=== PATIENT | male | born 1965 | race Caucasian/White ===

== ENCOUNTER 2020-12-21 12:11 | Emergency (ER) | payer BC ==
--- NOTE | 2020-12-21 12:48 | EDM.PDOC ---
ED HPI GENERAL MEDICAL PROBLEM - General Chief Complaint: Chest Pain Stated Complaint: CHEST INJURY SENT BY [facility] Time Seen by Provider: 12/21/20 12:25 Source of Information: Reports: Patient, RN Notes Reviewed History Limitations: Reports: No Limitations - History of Present Illness INITIAL COMMENTS - FREE TEXT/NARRATIVE: Patient is a 55-year-old male presenting to the emergency department at [facility] with complaints of right-sided and midsternal chest pain. Patient reports that on Friday, he fell and hit the right side of his chest on a water bottle. States he did not have much pain for 24 hours, however since Friday he has been having progressively worsening pain. Reports it hurts to take a deep breath, cough, or sneeze. Reports he does have shortness of breath, however this is chronic for him given history of emphysema. He does not feel that it is any worse than it is at baseline. Denies any dizziness, nausea, vomiting, or diaphoresis. Right Middle Chest Pain Score (Numeric/FACES): 7 - Related Data Allergies Allergy/AdvReac Type Severity Reaction Status Date / Time No Known Allergies Allergy Verified 12/21/20 12:22 Home Meds: Home Meds Naproxen [Naprosyn] 500 mg PO Q12HR 5 Days #10 tab 12/21/20 [Rx] Past Medical History Cardiovascular History: Reports: Hypertension Respiratory History: Reports: Other (See Below) Other Respiratory History: Emphysema Endocrine/Metabolic History: Reports: Obesity/BMI 30+ - Past Surgical History GI Surgical History: Reports: Hernia Repair/Other Social & Family History - Tobacco Use Tobacco Use Status *Q: Never Tobacco User - Caffeine Use Caffeine Use: Reports: Coffee - Recreational Drug Use Recreational Drug Use: No ED ROS GENERAL - Review of Systems Review Of Systems: Comprehensive ROS is negative, except as noted in HPI. ED EXAM, GENERAL - Physical Exam Exam: See Below Exam Limited By: No Limitations General Appearance: Alert, WD/WN, No Apparent Distress Respiratory/Chest: No Respiratory Distress, Lungs Clear, Normal Breath Sounds, No Accessory Muscle Use, Other (Large bruise to the right anterior chest wall. Tenderness to palpation throughout the right pectoralis muscle.) Cardiovascular: Normal Peripheral Pulses, Regular Rate, Rhythm, No Edema, No Gallop, No JVD, No Murmur, No Rub Neurological: Alert, Oriented, CN II-XII Intact, Normal Cognition, Normal Gait, Normal Reflexes, No Motor/Sensory Deficits Psychiatric: Normal Affect, Normal Mood Skin Exam: Warm, Dry, Intact, Normal Color, No Rash, Ecchymosis (Right anterior chest wall) #1 Interpretation EKG Date: 12/21/20 Time: 12:25 Rhythm: NSR Rate (Beats/Min): 80 [place]: LAD-Left [place] Deviation (minimal) P-Wave: Present QRS: Normal ST-T: Normal QT: Normal Course - Vital Signs Last Recorded V/S: Last Vital Signs Temp 98.8 F 12/21/20 12:18 Pulse 77 12/21/20 13:15 Resp 18 12/21/20 12:18 BP 166/90 H 12/21/20 13:15 Pulse Ox 98 12/21/20 13:15 - Orders/Labs/Meds Labs: Laboratory Tests 12/21/20 12/21/20 12/21/20 Range/Units 13:00 13:00 13:00 WBC 6.39 (4.23-9.07) K/mm3 RBC 4.89 (4.63-6.08) M/mm3 Hgb 15.5 (13.7-17.5) gm/dl Hct 44.7 (40.1-51.0) % MCV 91.4 (79.0-92.2) fl MCH 31.7 (25.7-32.2) pg MCHC 34.7 (32.2-35.5) g/dl RDW Std Deviation 43.9 (35.1-43.9) fL Plt Count 285 (163-337) K/mm3 MPV 9.1 L (9.4-12.3) fl Neutrophils % (Manual) 66 H (40-60) % Band Neutrophils % 0 (0-10) % Lymphocytes % (Manual) 23 (20-40) % Atypical Lymphs % 0 % Monocytes % (Manual) 7 (2-10) % Eosinophils % (Manual) 4 (0.8-7.0) % Basophils % (Manual) 0 L (0.2-1.2) Platelet Estimate Adequate RBC Morph Comment Normal PT 10.0 (9.7-12.0) SECONDS INR < 0.93 APTT 26.8 (21.7-31.4) SECONDS Sodium 136 (136-145) mEq/L Potassium 4.3 (3.5-5.1) mEq/L Chloride 105 (98-107) mEq/L Carbon Dioxide 24 (21-32) mEq/L Anion Gap 11.3 (5-15) BUN 22 H (7-18) mg/dL Creatinine 1.0 (0.7-1.3) mg/dL Est Cr Clr Drug Dosing 89.94 mL/min Estimated GFR (MDRD) > 60 (>60) mL/min BUN/Creatinine Ratio 22.0 H (14-18) Glucose 110 H (70-99) mg/dL Calcium 8.7 (8.5-10.1) mg/dL Magnesium 2.3 (1.8-2.4) mg/dL Total Bilirubin 0.3 (0.2-1.0) mg/dL AST 40 H (15-37) U/L ALT 51 (16-63) U/L Alkaline Phosphatase 85 (46-116) U/L Troponin I < 0.017 (0.00-0.056) ng/mL NT-Pro-B Natriuret Pep (0-125) pg/mL Total Protein 7.2 (6.4-8.2) g/dl Albumin 3.7 (3.4-5.0) g/dl Globulin 3.5 gm/dL Albumin/Globulin Ratio 1.1 (1-2) / Range/Units 13:00 WBC (4.23-9.07) K/mm3 RBC (4.63-6.08) M/mm3 Hgb (13.7-17.5) gm/dl Hct (40.1-51.0) % MCV (79.0-92.2) fl MCH (25.7-32.2) pg MCHC (32.2-35.5) g/dl RDW Std Deviation (35.1-43.9) fL Plt Count (163-337) K/mm3 MPV (9.4-12.3) fl Neutrophils % (Manual) (40-60) % Band Neutrophils % (0-10) % Lymphocytes % (Manual) (20-40) % Atypical Lymphs % % Monocytes % (Manual) (2-10) % Eosinophils % (Manual) (0.8-7.0) % Basophils % (Manual) (0.2-1.2) Platelet Estimate RBC Morph Comment PT (9.7-12.0) SECONDS INR APTT (21.7-31.4) SECONDS Sodium (136-145) mEq/L Potassium (3.5-5.1) mEq/L Chloride (98-107) mEq/L Carbon Dioxide (21-32) mEq/L Anion Gap (5-15) BUN (7-18) mg/dL Creatinine (0.7-1.3) mg/dL Est Cr Clr Drug Dosing mL/min Estimated GFR (MDRD) (>60) mL/min BUN/Creatinine Ratio (14-18) Glucose (70-99) mg/dL Calcium (8.5-10.1) mg/dL Magnesium (1.8-2.4) mg/dL Total Bilirubin (0.2-1.0) mg/dL AST (15-37) U/L ALT (16-63) U/L Alkaline Phosphatase (46-116) U/L Troponin I (0.00-0.056) ng/mL NT-Pro-B Natriuret Pep 75 (0-125) pg/mL Total Protein (6.4-8.2) g/dl Albumin (3.4-5.0) g/dl Globulin gm/dL Albumin/Globulin Ratio (1-2) Meds: Medications Discontinued Medications Generic Name Dose Route Start Last Admin Trade Name Freq PRN Reason Stop Dose Admin Ketorolac Tromethamine 60 mg 12/21/20 13:57 12/21/20 14:17 Ketorolac 60 Mg/2 Ml Sdv IM 12/21/20 13:58 60 mg ONETIME ONE Administration - Re-Assessments/Exams Free Text/Narrative Re-Assessment/Exam: Patient is a 55-year-old male presenting to the emergency department with complaints of midsternal and right-sided chest pain. Symptoms have been occurring and progressively worsening since Friday. On Friday he had a fall, hitting his right sided chest wall. Patient does not feel that this is necessarily coming from the bruise, however he is very tender approximately 4 cm medial to the bruise on his right lateral chest wall. Reports it is painful to take a deep breath, cough, or sneeze. I have ordered blood work, EKG, chest x- ray. 12/21/20 13:53 Work-up is unremarkable. Chest x-ray shows no acute abnormalities. EKG shows no evidence of acute ischemia. His pain is related to chest wall contusion. I will give him an injection of Toradol and then have him start Naprosyn 500 mg twice daily for 5 days starting this evening. Recommend intermittent icing of the area. Discharge instructions as documented. Departure - Departure Time of Disposition: 13:58 Disposition: Home, Self-Care 01 Condition: Good Clinical Impression: Chest wall contusion Qualifiers: Encounter type: initial encounter Laterality: right Qualified Code(s): S20.211A - Contusion of right front wall of thorax, initial encounter Prescriptions: Naproxen [Naprosyn] 500 mg PO Q12HR 5 Days #10 tab Instructions: Contusion, [id number] Referrals: PCP,None [Primary Care Provider] - Forms: ED Department Discharge Additional Instructions: You were seen in the emergency department today for midsternal and right-sided chest pain. Work-up included blood work, EKG of your heart, chest x-ray. Results of your work-up were found to be normal. You are suffering from a chest wall contusion related to your fall on Friday. While in the ER, you received an injection of Toradol. Prescription for Naprosyn has been sent to your pharmacy. Take this as prescribed starting this evening. Recommend intermittent icing to the area of discomfort. Do not apply ice directly to the skin. If symptoms fail to improve over the next few days, recommend follow-up in the clinic. Return to ER as needed. Sepsis Event Note (ED) - Evaluation Sepsis Screening Result: No Definite Risk - Focused Exam Vital Signs: Vital Signs Temp Pulse Resp BP Pulse Ox 12/21/20 13:15 77 166/90 H 98 12/21/20 12:18 98.8 F 78 18 195/98 H 99
--- NOTE | 2020-12-21 12:49 | CR ---
Chest: 2 views of the chest were obtained. Comparison: No prior chest imaging is available. Heart size is within normal limits. Tortuous thoracic aorta is seen. Lungs show no definite acute parenchymal change. Bony structures show nothing acute. Impression: 1. Nothing acute is appreciated on 2 view chest x-ray. Diagnostic code #1
[2020-12-21] MEDS ORDERED: Ketorolac 60 MG/2 ML SDV IM ONE (13:57)
== END 2020-12-21 14:20 | disposition home or self-care (01) ==
LOC: JD.ED 12:11
DX: S20.211A Contusion of right front wall of thorax, initial encounter (principal); I10 Essential (primary) hypertension; J43.9 Emphysema, unspecified; E66.9 Obesity, unspecified; Z68.41 Body mass index [BMI] 40.0-44.9, adult; W22.8XXA Striking against or struck by other objects, initial encounter
CPT/HCPCS: 36415; 71046; 80053; 83735; 83880; 84484; 85007; 85027; 85610; 85730; 93005; 96372; 99285; J1885; 99283